=== PATIENT | male | born 1985 | race Caucasian/White ===

== ENCOUNTER 2021-11-06 12:33 | Emergency (ER) | payer OTHER ==
[~2021-11-06] VITALS: Ht 172.7 cm; Wt 82.0 kg
[2021-11-06 12:45] VITALS: BP 131/83
[2021-11-06] MEDS ORDERED: ACETAMINOPHEN 325MG TABLET PO ONE (12:45)
[2021-11-06] MEDS ORDERED: IBUPROFEN 600MG TABLET PO ONE (12:45)
[2021-11-06] MEDS ORDERED: ACETAMINOPHEN 325MG TABLET PO NR (14:45)
[2021-11-06] MEDS ORDERED: IBUPROFEN 600MG TABLET PO NR (14:45)
[2021-11-06] MEDS ORDERED: IBUP-2029 MT (16:07)
[2021-11-06] MEDS ORDERED: TOPUD MT (16:07)
== END 2021-11-06 16:32 | disposition home or self-care (01) ==
LOC: ER 13:33
DX: B34.9 Viral infection, unspecified (principal); R50.9 Fever, unspecified; Z20.822 Contact with and (suspected) exposure to COVID-19
CPT/HCPCS: 87426; 87804; 99283; C9803